=== PATIENT | female | born 1990 | race Caucasian/White ===

== ENCOUNTER → 2018-11-14 | Outpatient (CLI) | payer BC ==
--- NOTE | 2018-11-18 07:50 | PCVCIMAG ---
APPROVED REPORT Study performed: 11/14/2018 09:33:17 EXAM: Comprehensive 2D, Doppler, and color-flow Echocardiogram Patient Location: Echo lab Status: routine BSA: 1.67 HR: 82 bpmBP: 108/64 mmHg Rhythm: NSR Other Information Study Quality: Adequate Indications Vasovagal near syncope 2D Dimensions IVSd: 8.14 (7-11mm)LVOT Diam: 18.00 (18-24mm) LVDd: 32.47 mm PWd: 8.48 (7-11mm)Ascending Ao: 23.97 (22-36mm) LVDs: 24.19 (25-40mm) Left Atrium: 26.77 (27-40mm) Aortic Root: 24.11 mm LV Single Plane 4CH: 56.28 % LV Single Plane 2CH: 54.98 % Biplane EF: 53.5 % Volumes Left Atrial Volume (Systole) Single Plane 4CH: 27.57 mLSingle Plane 2CH: 24.83 mL LA ESV Index: 16.00 mL/m2 Aortic Valve AoV Peak Asim.: 1.24 m/s AO Peak Gr.: 6.18 mmHgLVOT Max P.47 mmHg LVOT Max V: 0.93 m/s JOE Vmax: 1.85 cm2 Mitral Valve E/A Ratio: 1.2 MV Decel. Time: 221.61 ms MV E Max Asim.: 1.00 m/s MV A Asim.: 0.85 m/s IVRT: 48.44 ms TDI E/Lateral E': 7.14E/Medial E': 6.67 Medial E' Asim.: 0.15 m/s Lateral E' Asim.: 0.14 m/s Pulmonary Valve PV Peak Asim.: 0.87 m/sPV Peak Gr.: 3.03 mmHg Pulmonary Vein P Vein S: 0.41 m/sP Vein A: 0.25 m/s P Vein D: 0.58 m/sP Vein A Dur.: 90.0 msec P Vein S/D Ratio: 0.71 Tricuspid Valve TR Peak Asim.: 1.83 m/sRAP Estimate: 7.00 mmHg TR Peak Gr.: 13.45 mmHg PA Pressure: 20.00 mmHg Left Ventricle The left ventricle is normal size. There is normal LV segmental wall motion. There is normal left ventricular wall thickness. Left ventricular systolic function is normal. The left ventricular ejection fraction is within the normal range. LVEF is >55%. The left ventricular diastolic function is normal. Right Ventricle The right ventricle is normal size. The right ventricular systolic function is normal. Atria The left atrium size is normal. The right atrium size is normal. Aortic Valve The aortic valve is normal in structure. No aortic regurgitation is present. There is no aortic valvular stenosis. Mitral Valve The mitral valve is normal in structure. There is no mitral valve regurgitation noted. No evidence of mitral valve stenosis. Tricuspid Valve The tricuspid valve is normal in structure. Trace tricuspid regurgitation. Pulmonary artery pressure is 20 mmHg. Pulmonic Valve The pulmonary valve is normal in structure. There is no pulmonic valvular regurgitation. Great Vessels The aortic root is normal in size. IVC is normal in size and collapses >50% with inspiration. Pericardium There is no pericardial effusion. <Conclusion> 1. Normal echocardiogram with Doppler. Ejection fraction 65%. 2. Pulmonary artery pressure of 20 mmHg. 3. No pericardial effusion
== END | disposition home or self-care (01) ==
LOC: PCVCIMAG 09:31
PROVIDERS: ATTEND Internal Medicine
DX: R55 Syncope and collapse (principal)
CPT/HCPCS: 93306